=== PATIENT | female | born 1930 | race Caucasian/White ===

== ENCOUNTER 2018-03-05 11:55 | Inpatient (IN) | payer MEDICARE, OTHER ==
[~2018-03-05] VITALS: Ht 157.5 cm; Wt 55.0 kg
[2018-03-05 12:04] VITALS: BP 170/70; PULSE 103; RESP 21; TEMP 99.2; O2SAT 97
[2018-03-05 12:12] VITALS: O2SAT 97
--- NOTE | 2018-03-05 12:14 | PD ---
HPI Chief Complaint: Hip injury Time Seen by Provider: 12:02 Travel History International Travel<30 days: No Contact w/Intl Traveler<30days: No Traveled to known affect area: No History of Present Illness HPI The patient is 87-year-old female who presents to the emergency department via nonemergent transport from [facility] re[facility] for left hip injury. The patient is a poor historian and no further information is obtained from the patient. She does respond to name, but is unable to tell me the month or year. She is unable to answer any questions in regards to review of systems. Review the patient's paperwork does reveal she had an outpatient x- ray performed which revealed an intertrochanteric fracture of the left hip. No further information is obtainable from the patient. PFSH Past Medical History Narrative Medical Hyperlipidemia, anemia, osteoporosis, anxiety disorder, vitamin D deficiency, hypothyroidism, gastroesophageal reflux disease, atherosclerotic heart disease Past Surgical History Surgical History: Unable to Obtain Social History Tobacco Use: No Allergies-Medications (Allergen,Severity, Reaction): Coded Allergies: No Known Allergies (Unverified , 03/05/18) Reported Meds & Prescriptions Reported Meds & Active Scripts Active Reported Tylenol (Acetaminophen) 325 Mg Tab 650 Mg PO Q6H PRN Zetia (Ezetimibe) 10 Mg Tab 10 Mg PO DAILY Atorvastatin (Atorvastatin Calcium) 10 Mg Tab 10 Mg PO HS Donepezil 10 Mg Tab 10 Mg PO HS Flomax (Tamsulosin HCl) 0.4 Mg Cap 0.4 Mg PO DAILY Fosamax (Alendronate Sodium) 70 Mg Tab 70 Mg PO Q7D Ranitidine (Ranitidine HCl) 150 Mg Tab 150 Mg PO DAILY Vitamin B-12 (Cyanocobalamin) 500 Mcg Tab 500 Mcg PO DAILY Amlodipine (Amlodipine Besylate) 10 Mg Tab 10 Mg PO DAILY Keppra (Levetiracetam) 250 Mg Tab 250 Mg PO BID Levothyroxine (Levothyroxine Sodium) 112 Mcg Tab 112 Mcg PO DAILY Aspirin 81 Mg Chew 81 Mg CHEW DAILY Review of Systems ROS Limitations: Clinical Condition, Poor Historian Except as stated in HPI: all other systems reviewed are Neg Musculoskeletal: Positive: Pain (Left hip fracture according to x-ray results from the shelter) Physical Exam Narrative GENERAL: Awake, eyes open, mostly nonverbal 87-year-old female who appears her stated age and is in no acute respiratory distress. SKIN: Focused skin assessment warm/dry. HEAD: Atraumatic. Normocephalic. EYES: No injection or drainage. ENT: No nasal bleeding or discharge. No visible tooth NECK: Trachea midline. No JVD. CARDIOVASCULAR: Regular rate and rhythm. No murmur appreciated. RESPIRATORY: No accessory muscle use. Clear to auscultation. Breath sounds equal bilaterally. GASTROINTESTINAL: Abdomen soft, non-tender, nondistended. No rebound tenderness MUSCULOSKELETAL: The left leg is shortened and slightly rotated. Positive distal pulses. NEUROLOGICAL: Awake, eyes open, does not follow commands. Does respond to name. Moves her upper extremities and right lower extremity, little movement of the left lower extremity. PSYCHIATRIC: Unable to obtain. Data Data Last Documented VS Vital Signs Date Time Temp Pulse Resp B/P (MAP) Pulse Ox O2 Delivery O2 Flow Rate FiO2 03/05/18 13:32 98 12 151/67 (95) 95 Room Air 03/05/18 12:04 99.2 Orders Orders Electrocardiogram (03/05/18 12:07) Complete Blood Count With Diff (03/05/18 12:07) Comprehensive Metabolic Panel (03/05/18 12:07) Prothrombin Time / Inr (Pt) (03/05/18 12:07) Act Partial Throm Time (Ptt) (03/05/18 12:07) Urinalysis - C+S If Indicated (03/05/18 12:07) Type And Screen (03/05/18 12:07) Chest, Single Ap (03/05/18 12:07) Hip, Uni(Ap&Lat) W Ap Pelvis (03/05/18 12:07) Iv Access Insert/Monitor (03/05/18 12:07) Urinary Catheter Insert/Apply (03/05/18 12:07) Oximetry (03/05/18 12:07) Ice/Cold Pack (03/05/18 12:07) Ecg Monitoring (03/05/18 12:07) Morphine Inj (Morphine Inj) (03/05/18 12:15) Sodium Chloride 0.9% Flush (Ns Flush) (03/05/18 12:15) Ondansetron Odt (Zofran Odt) (03/05/18 12:15) Urine Culture (03/05/18 12:20) Ceftriaxone Inj (Rocephin Inj) (03/05/18 13:15) Levofloxacin 500 Mg Premix Inj (Levaquin (03/05/18 13:30) Consult Orthopedic (03/05/18 ) (Hub Use Only)Inp Phy Cons/Ref (03/05/18 ) Acetaminophen (Tylenol) (03/05/18 13:45) Amlodipine (Norvasc) (03/06/18 09:00) Atorvastatin (Lipitor) (03/05/18 21:00) Cyanocobalamin (Vitamin B12) (03/06/18 09:00) Donepezil (Aricept) (03/05/18 21:00) Levetiracetam (Keppra) (03/05/18 21:00) Levothyroxine (Synthroid) (03/06/18 06:00) Tamsulosin (Flomax) (03/06/18 09:00) (Nf) Ranitidine (03/06/18 09:00) Admit To Inpatient (03/05/18 ) Vital Signs (Adult) Q4H (03/05/18 13:39) Activity Bed Rest (03/05/18 13:39) Npo After Midnight W/ Po Meds (03/06/18 Breakfast) Diet Heart Healthy (03/05/18 Lunch) Sodium Chloride 0.9% Flush (Ns Flush) (03/05/18 13:45) Sodium Chloride 0.9% Flush (Ns Flush) (03/05/18 21:00) Acetamin-Hydrocod 325-5 Mg ([place] 5-325 (03/05/18 13:45) Docusate Sodium (Colace) (03/05/18 21:00) Diphenhydramine Inj (Benadryl Inj) (03/05/18 13:45) Diphenhydramine (Benadryl) (03/05/18 13:45) Naloxone Inj (Narcan Inj) (03/05/18 13:45) Complete Blood Count With Diff (03/06/18 06:00) Basic Metabolic Panel (Bmp) (03/06/18 06:00) Inpatient Certification (03/05/18 ) Ceftriaxone Inj (Rocephin Inj) (03/06/18 10:00) Admit Order (Ed Use Only) (03/05/18 13:54) Labs Laboratory Tests Test 03/05/18 12:20 White Blood Count 7.2 TH/MM3 Red Blood Count 4.01 MIL/MM3 Hemoglobin 10.2 GM/DL Hematocrit 30.9 % Mean Corpuscular Volume 77.3 FL Mean Corpuscular Hemoglobin 25.4 PG Mean Corpuscular Hemoglobin Concent 32.8 % Red Cell Distribution Width 14.3 % Platelet Count 167 TH/MM3 Mean Platelet Volume 9.4 FL Neutrophils (%) (Auto) 75.2 % Lymphocytes (%) (Auto) 13.8 % Monocytes (%) (Auto) 10.1 % Eosinophils (%) (Auto) 0.5 % Basophils (%) (Auto) 0.4 % Neutrophils # (Auto) 5.4 TH/MM3 Lymphocytes # (Auto) 1.0 TH/MM3 Monocytes # (Auto) 0.7 TH/MM3 Eosinophils # (Auto) 0.0 TH/MM3 Basophils # (Auto) 0.0 TH/MM3 CBC Comment DIFF FINAL Differential Comment Prothrombin Time 10.6 SEC Prothromb Time International Ratio 1.0 RATIO Activated Partial Thromboplast Time 26.4 SEC Urine Color YELLOW Urine Turbidity CLOUDY Urine pH 6.0 Urine Specific [place] 1.016 Urine Protein NEG mg/dL Urine Glucose (UA) NEG mg/dL Urine Ketones NEG mg/dL Urine Occult Blood SMALL Urine Nitrite POS Urine Bilirubin NEG Urine Urobilinogen 2.0 mg/dL Urine Leukocyte Esterase LARGE Urine RBC 3 /hpf Urine WBC /hpf Urine WBC Clumps MOD Urine Squamous Epithelial Cells 1 /hpf Urine Bacteria MANY /hpf Urine Hyaline Casts 1 /lpf Urine Mucus FEW /lpf Microscopic Urinalysis Comment CULTURE INDICATED Blood Urea Nitrogen 17 MG/DL Creatinine 0.84 MG/DL Random Glucose 138 MG/DL Total Protein 6.5 GM/DL Albumin 3.0 GM/DL Calcium Level 8.7 MG/DL Alkaline Phosphatase 87 U/L Aspartate Amino Transf (AST/SGOT) 16 U/L Alanine Aminotransferase (ALT/SGPT) 17 U/L Total Bilirubin 0.5 MG/DL Sodium Level 141 MEQ/L Potassium Level 3.5 MEQ/L Chloride Level 107 MEQ/L Carbon Dioxide Level 23.6 MEQ/L Anion Gap 10 MEQ/L Estimat Glomerular Filtration Rate 64 ML/MIN MDM Medical Decision Making Medical Screen Exam Complete: Yes Emergency Medical Condition: Yes Medical Record Reviewed: Yes Interpretation(s) EKG reveals sinus tachycardia with a heart rate of 102. RSR prime in V1, incomplete right bundle branch block. Last Impressions Hip and Pelvis X-Ray 03/05/18 1207 Signed Impressions: CONCLUSION: There is a comminuted mildly displaced fracture of the left femur through the i ntertrochanteric region. Chest X-Ray 03/05/18 1207 Signed Impressions: CONCLUSION: Mild atelectasis versus consolidation in the left lower lobe. Otherwise, no acu te finding is identified. Laboratory Tests Test 03/05/18 12:20 White Blood Count 7.2 TH/MM3 Red Blood Count 4.01 MIL/MM3 Hemoglobin 10.2 GM/DL Hematocrit 30.9 % Mean Corpuscular Volume 77.3 FL Mean Corpuscular Hemoglobin 25.4 PG Mean Corpuscular Hemoglobin Concent 32.8 % Red Cell Distribution Width 14.3 % Platelet Count 167 TH/MM3 Mean Platelet Volume 9.4 FL Neutrophils (%) (Auto) 75.2 % Lymphocytes (%) (Auto) 13.8 % Monocytes (%) (Auto) 10.1 % Eosinophils (%) (Auto) 0.5 % Basophils (%) (Auto) 0.4 % Neutrophils # (Auto) 5.4 TH/MM3 Lymphocytes # (Auto) 1.0 TH/MM3 Monocytes # (Auto) 0.7 TH/MM3 Eosinophils # (Auto) 0.0 TH/MM3 Basophils # (Auto) 0.0 TH/MM3 CBC Comment DIFF FINAL Differential Comment Prothrombin Time 10.6 SEC Prothromb Time International Ratio 1.0 RATIO Activated Partial Thromboplast Time 26.4 SEC Urine Color YELLOW Urine Turbidity CLOUDY Urine pH 6.0 Urine Specific [place] 1.016 Urine Protein NEG mg/dL Urine Glucose (UA) NEG mg/dL Urine Ketones NEG mg/dL Urine Occult Blood SMALL Urine Nitrite POS Urine Bilirubin NEG Urine Urobilinogen 2.0 mg/dL Urine Leukocyte Esterase LARGE Urine RBC 3 /hpf Urine WBC /hpf Urine WBC Clumps MOD Urine Squamous Epithelial Cells 1 /hpf Urine Bacteria MANY /hpf Urine Hyaline Casts 1 /lpf Urine Mucus FEW /lpf Microscopic Urinalysis Comment CULTURE INDICATED Blood Urea Nitrogen 17 MG/DL Creatinine 0.84 MG/DL Random Glucose 138 MG/DL Total Protein 6.5 GM/DL Albumin 3.0 GM/DL Calcium Level 8.7 MG/DL Alkaline Phosphatase 87 U/L Aspartate Amino Transf (AST/SGOT) 16 U/L Alanine Aminotransferase (ALT/SGPT) 17 U/L Total Bilirubin 0.5 MG/DL Sodium Level 141 MEQ/L Potassium Level 3.5 MEQ/L Chloride Level 107 MEQ/L Carbon Dioxide Level 23.6 MEQ/L Anion Gap 10 MEQ/L Estimat Glomerular Filtration Rate 64 ML/MIN Differential Diagnosis Differential diagnosis includes femoral neck fracture, intertrochanteric hip fracture, femur fracture, pelvic fracture, mechanical fall. Narrative Course IV was established, labs are drawn and sent, the patient was placed on cardiac telemetry monitoring and continuous pulse oximetry monitoring. Chest x-ray, pelvic x-ray, and x-ray of the left hip were obtained. 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 English catheter was placed. The patient was kept n.p.o. UA reveals innumerable WBCs with leukocyte esterase consistent with UTI. The patient was administered Rocephin 1 g intravenously. X-ray reveals a left intertrochanteric hip fracture that is displaced. The patient will be admitted to the medical service with a consultation orthopedics. I discussed the patient with the orthopedic surgeon, Dr. Medrano, at 1:27 PM. He requests 1 g of Rocephin and Levaquin. He states the patient can eat tonight, should be n.p.o. after midnight. The on-call medical service was paged for admission. Physician Communication Physician Communication The on-call medical service was paged for admission. I discussed the patient with Dr. Pinzon who agrees with admission. Diagnosis Primary Impression: Intertrochanteric fracture of left hip Qualified Codes: S72.142A - Displaced intertrochanteric fracture of left femur , initial encounter for closed fracture Additional Impression: UTI (urinary tract infection) Qualified Codes: N30.00 - Acute cystitis without hematuria Admitting Information Admitting Physician Requests: Admit Condition: Stable Ki Guallpa MD Mar 05, 2018 12:14
[2018-03-05] MEDS ORDERED: ONDANSETRON ODT 4 MG TAB PO ONE (12:15)
[2018-03-05] MEDS ORDERED: MORPHINE SULFATE 4 MG/ML INJ IV PUSH ONE (12:15)
[2018-03-05] MEDS ORDERED: SODIUM CHLORIDE 0.9% FLUSH 10 ML FLUSH IVF PRN (12:15)
[2018-03-05 12:36] LABS: AUTOMATED NEUTROPHIL # 5.4 TH/MM3 (1.8-7.7); BASOPHIL % 0.4 % (0.0-2.0); EOSINOPHIL % 0.5 % (0.0-4.0); HEMATOCRIT 30.9 % (35.0-46.0); HEMOGLOBIN 10.2 GM/DL (11.6-15.3); LYMPH % 13.8 % (9.0-44.0); MEAN CELL VOLUME 77.3 FL (80.0-100.0); MEAN CORPUSCULAR HEMOGLOBIN 25.4 PG (27.0-34.0); MEAN CORPUSCULAR HGB CONC 32.8 % (32.0-36.0); MEAN PLATELET VOLUME 9.4 FL (7.0-11.0); MONO % 10.1 % (0.0-8.0); MONOCYTE # 0.7 TH/MM3 (0-0.9); NEUT % 75.2 % (16.0-70.0); PLATELET COUNT 167 TH/MM3 (150-450); RED BLOOD COUNT 4.01 MIL/MM3 (4.00-5.30); RED CELL DISTRIBUTION WIDTH 14.3 % (11.6-17.2); WHITE BLOOD COUNT 7.2 TH/MM3 (4.0-11.0)
[2018-03-05 12:41] LABS: PROTHROMBIN TIME - PATIENT 10.6 SEC (9.8-11.6)
[2018-03-05] MEDS ORDERED: ASPI-516 CHEW (12:44)
[2018-03-05] MEDS ORDERED: FOSA70TA PO (12:44)
[2018-03-05] MEDS ORDERED: AMLO10TA2 PO (12:44)
[2018-03-05] MEDS ORDERED: LEVO112T2 PO (12:44)
[2018-03-05] MEDS ORDERED: EZET10 PO (12:44)
[2018-03-05] MEDS ORDERED: TAMS5CAP PO (12:44)
[2018-03-05] MEDS ORDERED: ATOR10TA15 PO (12:44)
[2018-03-05] MEDS ORDERED: VITA500T4 PO (12:44)
[2018-03-05] MEDS ORDERED: LEVE250 PO (12:44)
[2018-03-05] MEDS ORDERED: TYLE325T PO (12:44)
[2018-03-05] MEDS ORDERED: DONE10TA7 PO (12:44)
[2018-03-05] MEDS ORDERED: RANI150T PO (12:44)
[2018-03-05 12:54] LABS: BACTERIA, URINE MANY /hpf; BILIRUBIN, URINE NEG (NEG); BLOOD, URINE SMALL (NEG); GLUCOSE,URINE NEG (NEG); HYALINE CAST, URINE 1 /lpf (RARE); KETONE, URINE NEG (NEG); MUCUS URINE FEW /lpf (OCC); NITRITE,URINE POS (NEG); SQUAMOUS EPITHELIAL CELL URINE 1 /hpf (0-5); URINE COLOR YELLOW (YELLW/STRAW); URINE LEUKOCYTE ESTERASE LARGE (NEG); WHITE BLOOD CELL CLUMPS MOD
--- NOTE | 2018-03-05 13:00 | RADRPT ---
EXAM DATE: 03/05/2018 12:54 PM EDT AGE/SEX: 87 years / Female INDICATIONS: Pain from fall. CLINICAL DATA: This is the patient's initial encounter. Patient reports that signs and symptoms have been present for 1 day and indicates a pain score of Nonresponsive. MEDICAL/SURGICAL HISTORY: Non-responsive. Non-responsive. COMPARISON: No prior exams available for comparison. FINDINGS: AP view of the pelvis with 2 views of the left hip joint demonstrate a comminuted mildly displaced fr acture through the intertrochanteric region of the left femur. The lesser trochanter is slightly disp laced medially. There is also abnormal angulation at the fracture site. Both hip joints demonstrate j oint space narrowing without significant osteophytes. The bones are under mineralized. No soft tissue abnormality is identified. There is a large amount of stool overlying the rectum. CONCLUSION: There is a comminuted mildly displaced fracture of the left femur through the intertrochanteric regio n. Electronically signed by: Alek Park MD 03/05/2018 12:59 PM EDT
--- NOTE | 2018-03-05 13:01 | RADRPT ---
EXAM DATE: 03/05/2018 12:55 PM EDT AGE/SEX: 87 years / Female INDICATIONS: Pain from fall. CLINICAL DATA: This is the patient's initial encounter. Patient reports that signs and symptoms have been present for 1 day and indicates a pain score of Nonresponsive. MEDICAL/SURGICAL HISTORY: Non-responsive. Non-responsive. COMPARISON: No prior exams available for comparison. FINDINGS: Supine AP view of the chest demonstrates a normal-sized cardiac silhouette with calcification of a mi ldly tortuous aorta. No pleural effusion or pneumothorax is identified. There is a linear opacity in the left lower lobe. There is mild biapical scar. Bones and soft tissues demonstrate no acute abnorma lity. CONCLUSION: Mild atelectasis versus consolidation in the left lower lobe. Otherwise, no acute finding is identifi ed. Electronically signed by: Alek Park MD 03/05/2018 1:00 PM EDT
[2018-03-05 13:11] LABS: AST (GOT) 16 U/L (15-37); BICARBONATE 23.6 MEQ/L (21.0-32.0); BLOOD UREA NITROGEN 17 MG/DL (7-18); CALCIUM 8.7 MG/DL (8.5-10.1); CHLORIDE 107 MEQ/L (98-107); CREATININE 0.84 MG/DL (0.50-1.00); GLOMERULAR FILTRATION RATE 64 ML/MIN (>89); GLUCOSE,RANDOM 138 MG/DL (74-106); SODIUM (NA) 141 MEQ/L (136-145)
[2018-03-05 13:12] LABS: ALT (GPT) 17 U/L (10-53)
[2018-03-05 13:15] LABS: ALKALINE PHOSPHATASE 87 U/L (45-117); TOTAL BILIRUBIN ADULT 0.5 MG/DL (0.2-1.0); TOTAL PROTEIN 6.5 GM/DL (6.4-8.2)
[2018-03-05] MEDS ORDERED: cefTRIAXone INJ 1,000 MG in SODIUM CHLORIDE 0.9% INJ 100 ML IV ONE (13:15)
[2018-03-05] MEDS ORDERED: LEVOFLOXACIN 500 MG PREMIX INJ 100 ML IV ONE (13:30)
[2018-03-05 13:32] VITALS: BP 151/67; PULSE 98; RESP 12; O2SAT 95
[2018-03-05] MEDS ORDERED: diphenhydrAMINE HCL 25 MG CAP PO PRN (13:45)
[2018-03-05] MEDS ORDERED: ACETAMINOPHEN/HYDROcodone 325 MG/5 MG TAB PO PRN (13:45)
[2018-03-05] MEDS ORDERED: ACETAMINOPHEN 325 MG TAB PO PRN (13:45)
[2018-03-05] MEDS ORDERED: SODIUM CHLORIDE 0.9% FLUSH 10 ML FLUSH IV FLUSH PRN (13:45)
[2018-03-05] MEDS ORDERED: diphenhydrAMINE HCL 50 MG/ML VIAL IV PUSH PRN (13:45)
[2018-03-05] MEDS ORDERED: NALOXONE HCL 0.4 MG/ML AMP IV PUSH PRN (13:45)
--- NOTE | 2018-03-05 13:51 | HHI.HP ---
[facility] Service [facility] Primary Care Physician Simone Oneill MD Admission Diagnosis Diagnoses: (1) Dementia (2) Intertrochanteric fracture of left hip (3) UTI (urinary tract infection) (4) Seizure disorder (5) Hyperlipidemia Chief Complaint: Sent from SNF with hip fracture. Travel History International Travel<30 Days: No Contact w/Intl Traveler <30 Da: No Traveled to Known Affected Are: No History of Present Illness 87-year-old female with a medical history significant for dementia, seizure disorder, hyperlipidemia, osteoporosis sent from [facility] and rehab for left hip fracture. The patient has dementia and is unable to provide any history. History obtained from communications with ER physician and review of the chart. Apparently the patient was brought in with paperwork showing an outpatient x-ray with report of left intratrochanteric fracture. It is unclear how the patient sustained injury. There has been no report of change in mental status or syncopal episodes. Workup in the emergency room confirmed a left hip fracture and urinalysis concerning for UTI. Orthopedic surgery has been consulted. Review of Systems ROS Limitations: Clinical Condition, Poor Historian Unable to obtain accurate review of systems due to significant dementia. Past Family Social History Past Medical History Dementia Hyperlipidemia Seizure disorder Hypothyroidism GERD Atherosclerotic heart disease Past Surgical History Unable to obtain Reported Medications Reported Meds & Active Scripts Active Reported Tylenol (Acetaminophen) 325 Mg Tab 650 Mg PO Q6H PRN Zetia (Ezetimibe) 10 Mg Tab 10 Mg PO DAILY Atorvastatin (Atorvastatin Calcium) 10 Mg Tab 10 Mg PO HS Donepezil 10 Mg Tab 10 Mg PO HS Flomax (Tamsulosin HCl) 0.4 Mg Cap 0.4 Mg PO DAILY Fosamax (Alendronate Sodium) 70 Mg Tab 70 Mg PO Q7D Ranitidine (Ranitidine HCl) 150 Mg Tab 150 Mg PO DAILY Vitamin B-12 (Cyanocobalamin) 500 Mcg Tab 500 Mcg PO DAILY Amlodipine (Amlodipine Besylate) 10 Mg Tab 10 Mg PO DAILY Keppra (Levetiracetam) 250 Mg Tab 250 Mg PO BID Levothyroxine (Levothyroxine Sodium) 112 Mcg Tab 112 Mcg PO DAILY Aspirin 81 Mg Chew 81 Mg CHEW DAILY Allergies: Coded Allergies: No Known Allergies (Unverified , 03/05/18) Family History Unable to obtain Social History Patient resides at [facility] re[facility]. Physical Exam Vital Signs Vital Signs Date Time Temp Pulse Resp B/P (MAP) Pulse Ox O2 Delivery O2 Flow Rate FiO2 03/05/18 13:32 98 12 151/67 (95) 95 Room Air 03/05/18 12:15 101 22 96 Room Air 03/05/18 12:12 97 Room Air 03/05/18 12:04 99.2 103 21 170/70 (103) 97 Physical Exam GENERAL: Elderly female in no acute distress. Open eyes and nod but does not follow commands. HEAD: Atraumatic. Normocephalic. No temporal or scalp tenderness. EYES: Pupils equal round and reactive. ENT: Nose without bleeding, purulent drainage or septal hematoma. NECK: Trachea midline. No JVD or lymphadenopathy. Supple, nontender, no meningeal signs. CARDIOVASCULAR: Regular rate and rhythm without murmurs, gallops, or rubs. RESPIRATORY: Clear to auscultation. Breath sounds equal bilaterally. No wheezes , rales, or rhonchi. GASTROINTESTINAL: Abdomen soft, non-tender, nondistended. MUSCULOSKELETAL: Left lower extremity externally rotated and shortened. No lower extremity edema or cyanosis. NEUROLOGICAL: Demented. Does not follow commands. Laboratory Laboratory Tests Test 03/05/18 12:20 White Blood Count 7.2 Red Blood Count 4.01 Hemoglobin 10.2 Hematocrit 30.9 Mean Corpuscular Volume 77.3 Mean Corpuscular Hemoglobin 25.4 Mean Corpuscular Hemoglobin Concent 32.8 Red Cell Distribution Width 14.3 Platelet Count 167 Mean Platelet Volume 9.4 Neutrophils (%) (Auto) 75.2 Lymphocytes (%) (Auto) 13.8 Monocytes (%) (Auto) 10.1 Eosinophils (%) (Auto) 0.5 Basophils (%) (Auto) 0.4 Neutrophils # (Auto) 5.4 Lymphocytes # (Auto) 1.0 Monocytes # (Auto) 0.7 Eosinophils # (Auto) 0.0 Basophils # (Auto) 0.0 CBC Comment DIFF FINAL Differential Comment Prothrombin Time 10.6 Prothromb Time International Ratio 1.0 Activated Partial Thromboplast Time 26.4 Urine Color YELLOW Urine Turbidity CLOUDY Urine pH 6.0 Urine Specific [place] 1.016 Urine Protein NEG Urine Glucose (UA) NEG Urine Ketones NEG Urine Occult Blood SMALL Urine Nitrite POS Urine Bilirubin NEG Urine Urobilinogen 2.0 Urine Leukocyte Esterase LARGE Urine RBC 3 Urine WBC Urine WBC Clumps MOD Urine Squamous Epithelial Cells 1 Urine Bacteria MANY Urine Hyaline Casts 1 Urine Mucus FEW Microscopic Urinalysis Comment CULTURE INDICATED Blood Urea Nitrogen 17 Creatinine 0.84 Random Glucose 138 Total Protein 6.5 Albumin 3.0 Calcium Level 8.7 Alkaline Phosphatase 87 Aspartate Amino Transf (AST/SGOT) 16 Alanine Aminotransferase (ALT/SGPT) 17 Total Bilirubin 0.5 Sodium Level 141 Potassium Level 3.5 Chloride Level 107 Carbon Dioxide Level 23.6 Anion Gap 10 Estimat Glomerular Filtration Rate 64 Date/Time Source Procedure Growth Status 03/05/18 12:20 Urine Clean Catch Urine Culture Pending Received Result Diagram: 03/05/18 1220 03/05/18 1220 Imaging Last Impressions Hip and Pelvis X-Ray 03/05/18 1207 Signed Impressions: CONCLUSION: There is a comminuted mildly displaced fracture of the left femur through the i ntertrochanteric region. Chest X-Ray 03/05/18 1207 Signed Impressions: CONCLUSION: Mild atelectasis versus consolidation in the left lower lobe. Otherwise, no acu te finding is identified. Caprini VTE Risk Assessment Caprini VTE Risk Assessment: Mod/High Risk (score >= 2) Caprini Risk Assessment Model Point Value = 1 Point Value = 2 Point Value = 3 Point Value = 5 Age 41-60 Minor surgery BMI > 25 kg/m2 Swollen legs Varicose veins or History of unexplained or recurrent spontaneous Oral contraceptives or hormone replacement Sepsis (< 1 month) Serious lung disease, including pneumonia (< 1 month) Abnormal pulmonary function Acute myocardial infarction Congestive heart failure (< 1 month) History of inflammatory bowel disease Medical patient at bed rest Age 61-74 Arthroscopic surgery Major open surgery (> 45 min) Laparoscopic surgery (> 45 min) Malignancy Confined to bed (> 72 hours) Immobilizing plaster cast Central venous access Age >= 75 History of VTE Family history of VTE Factor V Leiden Prothrombin [id number] Lupus anticoagulant Anticardiolipin antibodies Elevated serum homocysteine Heparin-induced thrombocytopenia Other congenital or acquired thrombophilia Stroke (< 1 month) Elective arthroplasty Hip, pelvis, or leg fracture Acute spinal cord injury (< 1 month) Prophylaxis Regimen Total Risk Factor Score Risk Level Prophylaxis Regimen 0-1 Low Early ambulation 2 Moderate Order ONE of the following: *Sequential Compression Device (SCD) *Heparin 5000 units SQ BID 3-4 Higher Order ONE of the following medications: *Heparin 5000 units SQ TID *Enoxaparin/Lovenox 40 mg SQ daily (WT < 150 kg, CrCl > 30 mL/min) *Enoxaparin/Lovenox 30 mg SQ daily (WT < 150 kg, CrCl > 10-29 mL/min) *Enoxaparin/Lovenox 30 mg SQ BID (WT < 150 kg, CrCl > 30 mL/min) AND/OR *Sequential Compression Device (SCD) 5 or more Highest Order ONE of the following medications: *Heparin 5000 units SQ TID (Preferred with Epidurals) *Enoxaparin/Lovenox 40 mg SQ daily (WT < 150 kg, CrCl > 30 mL/min) *Enoxaparin/Lovenox 30 mg SQ daily (WT < 150 kg, CrCl > 10-29 mL/min) *Enoxaparin/Lovenox 30 mg SQ BID (WT < 150 kg, CrCl > 30 mL/min) AND *Sequential Compression Device (SCD) Assessment and Plan Problem List: (1) Intertrochanteric fracture of left hip ICD Code: S72.142A - Displaced intertrochanteric fracture of left femur, initial encounter for closed fracture Status: Acute Plan: Orthopedic surgery consulted. Plan for intervention tomorrow morning. N.p.o. after midnight Pain control (2) UTI (urinary tract infection) ICD Code: N39.0 - Urinary tract infection, site not specified Status: Acute Plan: Continue Rocephin daily. Follow urine cultures and blood cultures. (3) Dementia ICD Code: F03.90 - Unspecified dementia without behavioral disturbance Plan: Continue Aricept. No acute changes in her mental status. (4) Hyperlipidemia ICD Code: E78.5 - Hyperlipidemia, unspecified Plan: Continue statin (5) Seizure disorder ICD Code: G40.909 - Epilepsy, unspecified, not intractable, without status epilepticus Plan: Continue Keppra. Physician Certification 2 Midnight Certification Type: Admission for Inpatient Services Order for Inpatient Services The services are ordered in accordance with Medicare regulations or non- Medicare payer requirements, as applicable. In the case of services not specified as inpatient-only, they are appropriately provided as inpatient services in accordance with the 2-midnight benchmark. Estimated LOS (days): 3 days is the estimated time the patient will need to remain in the hospital, assuming treatment plan goals are met and no additional complications. Post-Hospital Plan: SNF Problem Qualifiers (1) Intertrochanteric fracture of left hip: Qualified Codes: S72.142A - Displaced intertrochanteric fracture of left femur , initial encounter for closed fracture (2) UTI (urinary tract infection): Qualified Codes: N30.00 - Acute cystitis without hematuria Tad Pinzon MD Mar 05, 2018 13:51
[2018-03-05 14:13] VITALS: BP 168/71
[2018-03-05] MEDS ORDERED: PILL SPLITTER OTHER PRN (14:15)
[2018-03-05 16:15] VITALS: BP 149/63; PULSE 97; RESP 19; TEMP 97.4; O2SAT 95
[2018-03-05] MEDS ORDERED: POVIDONE IODINE 5% (ANTISEPSIS KIT) 4 APPLICATIONS EACH NARE PRN (16:15)
[2018-03-05] MEDS ORDERED: CHLORHEXIDINE GLUCONATE 2 % 1 PACK (2 CLOTHS) TOPICAL PRN (16:15)
[2018-03-05] MEDS ORDERED: SODIUM CHLORID 0.9% 500 ML IV PRN (16:15)
[2018-03-05] MEDS ORDERED: LACTATED RINGER'S 1000 ML IV PRN (16:15)
[2018-03-05 20:00] VITALS: BP 146/67; PULSE 104; RESP 19; TEMP 98.4; O2SAT 94
[2018-03-05] MEDS: ATORVASTATIN 10 MG TAB PO SCH (21:39)
[2018-03-05] MEDS: levETIRAcetam 250 MG TAB PO SCH (21:39)
[2018-03-05] MEDS: DONEPEZIL HCL 5 MG TAB PO SCH (21:39)
[2018-03-05] MEDS: SODIUM CHLORIDE 0.9% FLUSH 10 ML FLUSH IV FLUSH SCH (21:39)
[2018-03-05] MEDS: DOCUSATE SODIUM 100 MG CAP PO SCH (21:39)
[2018-03-06] VITALS (7 sets, daily range): BP systolic 129–181; BP diastolic 67–79; PULSE 78–103; RESP 16–18; TEMP 97.7–98.3; O2SAT 92–98
[2018-03-06] MEDS: LEVOTHYROXINE SODIUM 112 MCG TAB PO SCH (05:24)
[2018-03-06] MEDS ORDERED: MORPHINE SULFATE 4 MG/ML INJ IV PUSH ONE (06:00)
[2018-03-06] MEDS ORDERED: VANCOMYCIN HCL 1000 MG VIAL ONE (07:35)
[2018-03-06] MEDS ORDERED: GENTAMICIN SULFATE 80 MG/2 ML VIAL ONE (07:36)
[2018-03-06] MEDS ORDERED: SODIUM CHLOR 0.9% 250 ML INJ 250 ML ONE (07:36)
[2018-03-06] MEDS ORDERED: ceFAZolin INJ 1,000 MG VIAL ONE (07:36)
[2018-03-06 07:40] LABS: AUTOMATED NEUTROPHIL # 5.6 TH/MM3 (1.8-7.7); BASOPHIL % 0.4 % (0.0-2.0); EOSINOPHIL % 0.6 % (0.0-4.0); HEMATOCRIT 29.5 % (35.0-46.0); HEMOGLOBIN 9.8 GM/DL (11.6-15.3); LYMPH % 12.7 % (9.0-44.0); LYMPHOCYTE # 0.9 TH/MM3 (1.0-4.8); MEAN CELL VOLUME 77.5 FL (80.0-100.0); MEAN CORPUSCULAR HEMOGLOBIN 25.7 PG (27.0-34.0); MEAN CORPUSCULAR HGB CONC 33.2 % (32.0-36.0); MEAN PLATELET VOLUME 9.6 FL (7.0-11.0); MONO % 11.5 % (0.0-8.0); MONOCYTE # 0.9 TH/MM3 (0-0.9); NEUT % 74.8 % (16.0-70.0); PLATELET COUNT 149 TH/MM3 (150-450); RED BLOOD COUNT 3.81 MIL/MM3 (4.00-5.30); RED CELL DISTRIBUTION WIDTH 14.5 % (11.6-17.2); WHITE BLOOD COUNT 7.5 TH/MM3 (4.0-11.0)
[2018-03-06 07:54] LABS: BICARBONATE 25.9 MEQ/L (21.0-32.0); CALCIUM 8.5 MG/DL (8.5-10.1); CREATININE 0.9 MG/DL (0.50-1.00)
[2018-03-06] MEDS: SODIUM CHLORIDE 0.9% FLUSH 10 ML FLUSH IV FLUSH SCH ×2 (09:00→22:30)
[2018-03-06] MEDS: CYANOCOBALAMIN 1,000 MCG TAB PO SCH (09:00)
[2018-03-06] MEDS: FAMOTIDINE 20 MG TAB PO SCH ×2 (09:00→21:00)
[2018-03-06] MEDS: TAMSULOSIN HCL 0.4 MG CAP PO SCH (09:00)
[2018-03-06] MEDS: DOCUSATE SODIUM 100 MG CAP PO SCH (09:00)
[2018-03-06] MEDS: levETIRAcetam 250 MG TAB PO SCH ×2 (09:00→21:00)
[2018-03-06] MEDS ORDERED: levETIRAcetam INJ 250 MG in SODIUM CHLORIDE 0.9% INJ 100 ML IV SCH (10:00)
--- NOTE | 2018-03-06 10:19 | HHI.PR ---
Subjective Remarks Pt about to go to OR. She is very demented and only says "yeah" but I'm not sure if she understands what I'm asking. She does look comfortable. She is awake , reaches out and holds my hand softly. Objective Vitals Vital Signs Date Time Temp Pulse Resp B/P (MAP) Pulse Ox O2 Delivery O2 Flow Rate FiO2 03/06/18 04:00 97.7 98 18 129/79 (96) 95 03/06/18 00:00 98.3 103 18 152/69 (96) 94 03/05/18 20:00 98.4 104 19 146/67 (93) 94 03/05/18 16:15 97.4 97 19 149/63 (91) 95 03/05/18 14:13 93 17 168/71 (103) 93 21 03/05/18 13:32 98 12 151/67 (95) 95 Room Air 03/05/18 12:15 101 22 96 Room Air 03/05/18 12:12 97 Room Air 03/05/18 12:04 99.2 103 21 170/70 (103) 97 I/O 03/05/18 03/05/18 03/05/18 03/06/18 03/06/18 03/06/18 07:00 15:00 23:00 07:00 15:00 23:00 Intake Total 100 ml 240 ml Output Total 600 ml Balance 100 ml -360 ml Intake Oral 240 ml IV Total 100 ml Output Urine Total 600 ml Result Diagram: 03/06/18 0544 03/06/18 0544 Imaging Last Impressions Hip and Pelvis X-Ray 03/05/18 1207 Signed Impressions: CONCLUSION: There is a comminuted mildly displaced fracture of the left femur through the i ntertrochanteric region. Chest X-Ray 03/05/18 1207 Signed Impressions: CONCLUSION: Mild atelectasis versus consolidation in the left lower lobe. Otherwise, no acu te finding is identified. Objective Remarks GENERAL: Elderly female laying in bed, appears comfortable CARDIOVASCULAR: Regular rate and rhythm without murmurs, gallops, or rubs. RESPIRATORY: Clear to auscultation. Breath sounds equal bilaterally. No wheezes , rales, or rhonchi. GASTROINTESTINAL: Abdomen soft, non-tender, nondistended. MUSCULOSKELETAL: No lower extremity edema NEUROLOGICAL: Demented. doesn't really follow commands but does reach out to hold my hand A/P Problem List: (1) Intertrochanteric fracture of left hip ICD Code: S72.142A - Displaced intertrochanteric fracture of left femur, initial encounter for closed fracture Status: Acute (2) UTI (urinary tract infection) ICD Code: N39.0 - Urinary tract infection, site not specified Status: Acute (3) Dementia ICD Code: F03.90 - Unspecified dementia without behavioral disturbance (4) Hyperlipidemia ICD Code: E78.5 - Hyperlipidemia, unspecified (5) Seizure disorder ICD Code: G40.909 - Epilepsy, unspecified, not intractable, without status epilepticus Assessment and Plan (1) Intertrochanteric fracture of left hip Orthopedic surgery consulted. Plan for intervention today. N.p.o. Pain control/rehab/abx/dvt proph per ortho (2) UTI (urinary tract infection) Continue Rocephin daily. Follow urine cultures and blood cultures. (3) Dementia Continue Aricept. No acute changes in her mental status. (4) Hyperlipidemia Continue statin (5) Seizure disorder Continue Keppra. I did switch it to IV as there were concerns w pt being able to take her pills. She is missing her dentures. I have ordered a speech eval as well. Discharge Planning OR today Problem Qualifiers (1) Intertrochanteric fracture of left hip: Qualified Codes: S72.142A - Displaced intertrochanteric fracture of left femur , initial encounter for closed fracture (2) UTI (urinary tract infection): Qualified Codes: N30.00 - Acute cystitis without hematuria Caitlin Lagunas MD Mar 06, 2018 10:19
[2018-03-06] MEDS ORDERED: ROCURONIUM INJ 50 MG/5 ML SYRINGE IV PUSH ONE (12:00)
[2018-03-06] MEDS ORDERED: ePHEDrine/NS 25 MG/5 ML SYRINGE IV ONE (12:00)
[2018-03-06] MEDS ORDERED: DEXAMETHASONE SOD PHOS 4 MG/ML VIAL IV ONE (12:00)
[2018-03-06] MEDS ORDERED: LIDOCAINE HCL 1% PF 5 ML SYRINGE OTHER ONE (12:00)
[2018-03-06] MEDS ORDERED: PHENYLEPH/NS 1000 MCG/10 ML SYR IV ONE (12:00)
[2018-03-06] MEDS ORDERED: ONDANSETRON HCL 4 MG/2 ML VIAL IV PUSH ONE (12:00)
[2018-03-06] MEDS ORDERED: PROPOFOL 200 MG/20 ML AMP IV ONE (12:00)
[2018-03-06] MEDS ORDERED: cefTRIAXone INJ 1,000 MG in SODIUM CHLORIDE 0.9% INJ 100 ML IV SCH (13:00)
[2018-03-06] MEDS ORDERED: NORC5TAB PO (13:38)
[2018-03-06] MEDS ORDERED: ASPI81CH6 CHEW (13:39)
[2018-03-06] MEDS ORDERED: ONDANSETRON ODT 4 MG TAB PO PRN (13:45)
[2018-03-06] MEDS ORDERED: diphenhydrAMINE HCL 25 MG CAP PO PRN (13:45)
[2018-03-06] MEDS ORDERED: ACETAMINOPHEN/HYDROcodone 325 MG/7.5 MG TAB PO PRN (13:45)
[2018-03-06] MEDS ORDERED: Post-op Orders (for Pharmacy) XX ONE (13:45)
[2018-03-06] MEDS ORDERED: NURSING INFORMATION XX PRN (13:45)
[2018-03-06] MEDS ORDERED: PHARMACY INFORMATION XX ONE (13:45)
[2018-03-06] MEDS ORDERED: MORPHINE SULFATE 4 MG/ML INJ IV PUSH PRN (13:45)
[2018-03-06] MEDS ORDERED: MAGNESIUM HYDROXIDE SUSP 30 ML CUP PO PRN (13:45)
[2018-03-06] MEDS ORDERED: *LABETALOL HCL 100 MG/20 ML VIAL PERIprocedural Use ONLY ONE (14:12)
[2018-03-06] MEDS: DEXT 5%-NACL 0.45% 1000 ML INJ 1,000 ML IV SCH ×2 (14:30→16:13)
[2018-03-06] MEDS ORDERED: ACETAMINOPHEN 1000 MG/100 ML 100 ML IV ONE ×2 (14:37→15:30)
--- NOTE | 2018-03-06 15:01 | MP ---
cc: Cirilo Medrano MD DATE OF OPERATION: 03/06/2018 DATE PREOPERATIVE DIAGNOSIS: Left intertrochanteric hip fracture. POSTOPERATIVE DIAGNOSIS: Left intertrochanteric hip fracture. PROCEDURE PERFORMED: Intramedullary nail, left intertrochanteric hip fracture. SURGEON: Cirilo Medrano MD INSPECTOR HEATING AND REFRIGERATION: SHIVANI Gabriel. ANESTHESIA: General. ESTIMATED BLOOD LOSS: 100 mL COMPLICATIONS: None. IMPLANTS USED: Synthes 10 x 180 mm titanium trochanteric femoral nail, 130-degree spiral blade. JUSTIFICATION: This patient is an 87-year-old female who fell and sustained a displaced left comminuted intertrochanteric hip fracture. She was transferred from [facility] to [facility] Emergency Room. X-rays confirmed the above-named findings. She was admitted to the medical service. Orthopedic Surgery was counseled. The patient's son, who is the power of wound care rn, was counseled as to the risks, benefits and alternatives to the above-named proposed surgical procedure. He did wish to proceed with surgery for his mother. PROCEDURE IN DETAIL: Written consent was obtained. The patient was identified by name, taken to the operating room, placed supine on the operating room table. General anesthesia was administered, as well as 2 grams of Ancef and 1 gram of IV vancomycin. The left foot was placed in a padded traction boot. The right leg was placed in a padded well leg avila. All bony prominences and pressure points were well padded. Left hip and left lower extremity prepped and draped using isopropyl alcohol, Hibiclens solution and ChloraPrep solution. After timeout was performed, using the assistance of fluoroscopic guidance, a preliminary reduction was achieved and a longitudinal incision made over the lateral aspect of the left hip with a 10 blade scalpel. The fascial layer was incised. The guidewire was used to gain entrance into the intramedullary canal of the femur. This was begun at the tip of the greater trochanter. This was followed by a cannulated entry reamer. Subsequently, a Synthes 10 mm titanium trochanteric femoral nail was inserted in the intramedullary canal of the femur. The 130-degree locking jig was used to place a guide pin centered in the femoral head on the AP and lateral fluoroscopic projections. This was followed by placement of a 90 mm spiral blade. The top locking screw was then secured to create a fixed angle sliding construct distally. The jig was placed and a single lateral to medial transverse static locking screw. Fluoroscopic imaging again confirmed hardware placement and fracture reduction. The surgical wound was then thoroughly irrigated with sterile saline solution. The fascial layer was closed with #1 Vicryl suture, the subcutaneous layer with 2-0 Vicryl suture. The skin was closed with Dermabond. Sterile dressing was applied. The patient tolerated the procedure well. No intraoperative complications noted. Oscar Glasgow, physician delivery assistant certified, was present for the entire procedure to include patient positioning and procedure itself. The medical necessity of a physician delivery assistant was indicated due to the complexity of the procedure. He assisted with appropriate manipulation of the leg as well as achieving and maintaining fracture reduction along with implantation of the internal fixation device. MD MATTY Perez/OSMANY , 01:35 PM , 03:01 PM
[2018-03-06] MEDS: levETIRAcetam INJ 250 MG in SODIUM CHLORIDE 0.9% INJ 100 ML IV SCH ×2 (15:05→22:23)
--- NOTE | 2018-03-06 15:08 | MB ---
cc: Cirilo Medrano MD DATE: 03/06/2018 REASON FOR CONSULTATION: Left intertrochanteric hip fracture. HISTORY OF PRESENT ILLNESS: The patient is an 87-year-old female who has severe dementia, seizure disorder, hyperlipidemia, osteoporosis, who resides at the [facility]. She appears to have fallen and sustained traumatic injury to the left hip. The patient's severe dementia limits further communication and the history from the patient. X-rays have been performed from [facility], which showed a comminuted displaced left intertrochanteric hip fracture. I have consulted the patient's son, power of business attorney, as well. PAST MEDICAL HISTORY: Dementia, hyperlipidemia, seizure disorder, hypothyroid, gastric reflux, heart disease. PAST SURGICAL HISTORY: Unobtainable. MEDICATIONS: Include: 1. Tylenol. 2. Zetia. 3. Atorvastatin. 4. 5. Flomax. 6. Faslodex. 7. Zantac. 8. B12. 9. Amlodipine. 10. Keppra. 11. Levothyroxine. 12. Aspirin. ALLERGIES: NO KNOWN DRUG ALLERGIES. FAMILY HISTORY: Unobtainable. SOCIAL HISTORY: She lives at [facility]. REVIEW OF SYSTEMS: Unobtainable. PHYSICAL EXAMINATION: VITAL SIGNS: Temperature 99.2, pulse was 98, respirations are 12, blood pressure 150/60. GENERAL: Elderly appearing female with altered mental status. Awake, alert, lying in bed, no acute distress. She does not follow commands or communicate. HEENT: Normocephalic, atraumatic. Pupils round. No scleral icterus. NECK: Supple. LUNGS: Clear. HEART: Regular rate and rhythm. ABDOMEN: Soft and nontender. EXTREMITIES: Left lower extremity shows shortening and external rotation. He has pain with passive motion of the left hip. No asymmetry or calf swelling. She does have mild swelling of the left thigh associated with a fracture. LABORATORY DATA: White blood cell count is 7.2, hematocrit 30, platelet 167. Glucose 138, creatinine 0.84. X-ray of left hip shows a comminuted displaced left intertrochanteric hip fracture. IMPRESSION: An 87-year-old female, status post fall, left intertrochanteric hip fracture, severe dementia, seizure disorder, heart disease. The patient's son is power of business attorney. PLAN: I discussed the diagnosis with the patient's son and treatment options in detail. We spoke about the option of nonoperative treatment versus surgery. Surgery would consist of open reduction and internal fixation with intramedullary nailing of left hip fracture. Risks of surgery were discussed, which include, but not limited to anesthesia, bleeding, infection, damage to nerves and blood vessels, pain, stiffness, failure of hardware, blood clot, pulmonary embolism and even . The patient's son has asked many appropriate questions, which have all been answered. He does wish to proceed with surgery and has provided appropriate consent for us to proceed accordingly. Cirilo Medrano MD JWRosa/AC , 01:33 PM , 03:06 PM
[2018-03-06] MEDS ORDERED: DO NOT ADM ANY ANTICOAGULANT DRUGS PRN (15:15)
--- NOTE | 2018-03-06 15:22 | RADRPT ---
EXAM DATE: 03/06/2018 3:17 PM EDT AGE/SEX: 87 years / Female INDICATIONS: Left troch nail. Open reduction internal fixation left hip CLINICAL DATA: This is the patient's initial encounter. Patient reports that signs and symptoms have been present for 1 day and indicates a pain score of Nonresponsive. MEDICAL/SURGICAL HISTORY: Non-responsive. Non-responsive. COMPARISON: [facility], HIP LEFT (AP&LAT 2/3VWS) W AP PELVIS, 03/05/2018. . FINDINGS: 3 images from the OR have been submitted. There is a short trochanteric femoral fixation intramedulla ry nail with a helical/spiral blade seen through the femoral neck. This successfully reduces the prev iously seen left intertrochanteric femoral neck fracture. CONCLUSION: Good placement of the surgical hardware. Successful ORIF. Electronically signed by: Alek Fowler MD 03/06/2018 3:20 PM EDT
[2018-03-06] MEDS ORDERED: ENALAPRILAT 2.5 MG/2 ML VIAL IV PUSH PRN (15:45)
[2018-03-06] MEDS: CEFAZOLIN INJ 1,000 MG in SODIUM CHLORIDE 0.9% INJ 100 ML IV SCH (22:23)
[2018-03-06] MEDS: DONEPEZIL HCL 5 MG TAB PO SCH (22:32)
[2018-03-06] MEDS: ATORVASTATIN 10 MG TAB PO SCH (22:32)
[2018-03-06] MEDS: DOCUSATE SODIUM 50 MG/SENNA 8.6 MG TAB PO SCH (22:32)
--- NOTE | 2018-03-06 23:16 | EKG ---
Date Performed: 03/05/2018 Time Performed: 12:16:22 PTAGE: 87 years EKG: SINUS TACHYCARDIA POSSIBLE LEFT ATRIAL ENLARGEMENT RIGHT BUNDLE BRANCH BLOCK ABNORMAL ECG NO PREVIOUS TRACING DOCTOR: Tanner Jay Interpretating Date/Time 03/06/2018 23:03:36
[2018-03-07 00:50] VITALS: BP 144/65; PULSE 75; RESP 17; TEMP 97.8; O2SAT 97
[2018-03-07] MEDS: LEVOTHYROXINE SODIUM 112 MCG TAB PO SCH (04:57)
[2018-03-07] MEDS: CEFAZOLIN INJ 1,000 MG in SODIUM CHLORIDE 0.9% INJ 100 ML IV SCH (04:57)
[2018-03-07 05:05] VITALS: BP 178/80; PULSE 89; RESP 17; TEMP 97.2; O2SAT 95
[2018-03-07] MEDS: ACETAMINOPHEN/HYDROcodone 325 MG/7.5 MG TAB PO PRN (05:10)
[2018-03-07 06:57] LABS: HEMATOCRIT 25.6 % (35.0-46.0); HEMOGLOBIN 8.3 GM/DL (11.6-15.3); MEAN CELL VOLUME 76.9 FL (80.0-100.0); MEAN CORPUSCULAR HEMOGLOBIN 24.9 PG (27.0-34.0); MEAN CORPUSCULAR HGB CONC 32.4 % (32.0-36.0); MEAN PLATELET VOLUME 9.7 FL (7.0-11.0); PLATELET COUNT 143 TH/MM3 (150-450); RED BLOOD COUNT 3.33 MIL/MM3 (4.00-5.30); WHITE BLOOD COUNT 11.3 TH/MM3 (4.0-11.0)
[2018-03-07 07:23] LABS: CALCIUM 8.1 MG/DL (8.5-10.1); CREATININE 0.7 MG/DL (0.50-1.00)
[2018-03-07 08:00] VITALS: BP 156/65; PULSE 81; RESP 18; TEMP 97.8; O2SAT 94
[2018-03-07] MEDS: SODIUM CHLORIDE 0.9% FLUSH 10 ML FLUSH IV FLUSH SCH ×2 (09:00→21:00)
[2018-03-07] MEDS: CYANOCOBALAMIN 1,000 MCG TAB PO SCH (09:00)
[2018-03-07] MEDS: levETIRAcetam 250 MG TAB PO SCH ×3 (09:00→21:47)
--- NOTE | 2018-03-07 09:22 | PD.ORT.PN ---
Subjective Post Op Day #: 1 Subjective Remarks hx of dementia Objective Vitals Vital Signs Date Time Temp Pulse Resp B/P (MAP) Pulse Ox O2 Delivery O2 Flow Rate FiO2 03/07/18 05:05 97.2 89 17 178/80 (112) 95 03/07/18 00:50 97.8 75 17 144/65 (91) 97 03/06/18 20:25 97.9 85 17 155/71 (99) 97 03/06/18 19:39 97 Nasal Cannula 3.00 03/06/18 16:08 78 18 153/67 (95) 97 03/06/18 15:03 97.9 80 18 181/75 (110) 98 03/06/18 14:47 98.0 80 16 157/70 (99) 97 Nasal Cannula 3 03/06/18 14:30 99 16 171/75 (107) 97 Nasal Cannula 3 03/06/18 14:15 99 16 182/77 (112) 97 Nasal Cannula 3 03/06/18 14:00 96 16 177/78 (111) 100 Nasal Cannula 3 03/06/18 13:51 98.4 94 17 191/79 (116) 99 Nasal Cannula 3 I/O 03/06/18 03/06/18 03/06/18 03/07/18 03/07/18 03/07/18 07:00 15:00 23:00 07:00 15:00 23:00 Intake Total 240 ml 830 ml 360 ml Output Total 600 ml 180 ml 500 ml Balance -360 ml 650 ml -140 ml Intake Oral 240 ml 360 ml Other 830 ml Output Urine Total 600 ml 130 ml 500 ml Estimated Blood Loss 50 ml # Bowel Movements 0 Result Diagram: 03/07/18 0611 03/07/18 0611 Objective Remarks in bed, nad dressing c/d/i thigh soft neg homans nvi Assessment & Plan Ortho Post Op Day #: 1 Problem List: Assessment and Plan s/p L troch nail nwb LLE daily dressing changes lovenox d/c planning back to snf f/up dr. arthur 2 weeks Cirilo Glasgow Mar 07, 2018 09:22
[2018-03-07] MEDS: MULTIVITAMINS/MINERALS THERAPEUTIC TAB PO SCH (10:00)
[2018-03-07] MEDS: FAMOTIDINE 20 MG TAB PO SCH ×2 (10:00→21:48)
[2018-03-07] MEDS: DOCUSATE SODIUM 50 MG/SENNA 8.6 MG TAB PO SCH ×2 (10:00→21:48)
[2018-03-07] MEDS: TAMSULOSIN HCL 0.4 MG CAP PO SCH (10:00)
[2018-03-07 10:33] VITALS: O2SAT 97
[2018-03-07] MEDS: DEXT 5%-NACL 0.45% 1000 ML INJ 1,000 ML IV SCH ×2 (11:00→21:00)
--- NOTE | 2018-03-07 11:03 | HHI.PR ---
Subjective Remarks Follow-up for left hip fracture s/p ORIF, UTI, dementia. Patient is currently awake, alert, sitting upright in bed, very pleasantly demented. She does not answer questions but instead smiles, nods, holds and kisses my hand. She cannot tell me her name. Vital signs reviewed, BP elevated this morning. O2 sat 97% on room air. No other concerns reported by RN. Objective Vitals Vital Signs Date Time Temp Pulse Resp B/P (MAP) Pulse Ox O2 Delivery O2 Flow Rate FiO2 03/07/18 10:33 97 21 03/07/18 05:05 97.2 89 17 178/80 (112) 95 03/07/18 00:50 97.8 75 17 144/65 (91) 97 03/06/18 20:25 97.9 85 17 155/71 (99) 97 03/06/18 19:39 97 Nasal Cannula 3.00 03/06/18 16:08 78 18 153/67 (95) 97 03/06/18 15:03 97.9 80 18 181/75 (110) 98 03/06/18 14:47 98.0 80 16 157/70 (99) 97 Nasal Cannula 3 03/06/18 14:30 99 16 171/75 (107) 97 Nasal Cannula 3 03/06/18 14:15 99 16 182/77 (112) 97 Nasal Cannula 3 03/06/18 14:00 96 16 177/78 (111) 100 Nasal Cannula 3 03/06/18 13:51 98.4 94 17 191/79 (116) 99 Nasal Cannula 3 I/O 03/06/18 03/06/18 03/06/18 03/07/18 03/07/18 03/07/18 07:00 15:00 23:00 07:00 15:00 23:00 Intake Total 240 ml 830 ml 360 ml Output Total 600 ml 180 ml 500 ml Balance -360 ml 650 ml -140 ml Intake Oral 240 ml 360 ml Other 830 ml Output Urine Total 600 ml 130 ml 500 ml Estimated Blood Loss 50 ml # Bowel Movements 0 Result Diagram: 03/07/18 0611 03/07/18 0611 Imaging Last Impressions Hip X-Ray 03/06/18 0000 Signed Impressions: CONCLUSION: Good placement of the surgical hardware. Successful ORIF. Hip and Pelvis X-Ray 6/17/18 1207 Signed Impressions: CONCLUSION: There is a comminuted mildly displaced fracture of the left femur through the i ntertrochanteric region. Chest X-Ray 03/05/181206 Signed Impressions: CONCLUSION: Mild atelectasis versus consolidation in the left lower lobe. Otherwise, no acu te finding is identified. Objective Remarks GENERAL: Well-nourished, well-developed pleasant, very confused elderly female patient in [facility]. SKIN: Warm and dry. No rash. HEENT: Normocephalic. Atraumatic. Pupils equal and round. Mucous membranes pink and moist. CARDIOVASCULAR: Regular rate and rhythm. No murmur appreciated. RESPIRATORY: No accessory muscle use. Clear to auscultation. Breath sounds equal bilaterally. GASTROINTESTINAL: Abdomen soft, non-tender, nondistended. Normoactive bowel sounds x4. MUSCULOSKELETAL: No obvious deformities. Extremities without clubbing, cyanosis , or edema. Left lateral hip with surgical dressing in place, CDI. NEUROLOGICAL: Awake and alert. No obvious cranial nerve deficits. Motor grossly within normal limits. Moving all extremities spontaneously. PSYCHIATRIC: Pleasant and calm mood; insight and judgment poor. Procedures 03/06/18- intramedullary nail, left intertrochanteric hip fracture by Dr. Medrano Medications and IVs Current Medications Medications (Trade) Dose Ordered Sig/Floyd Route Start Time Stop Time Status Last Admin (Tylenol) 650 mg Q6H PRN PO 03/05/18 13:45 (Norvasc) 10 mg DAILY PO 03/06/18 09:00 03/07/18 10:00 (Lipitor) 10 mg HS PO 03/05/18 21:00 03/06/18 22:32 (Vitamin B12) 500 mcg DAILY PO 03/06/18 09:00 03/07/18 09:00 (Aricept) 10 mg HS PO 03/05/18 21:00 03/06/18 22:32 (Keppra) 250 mg BID PO 03/05/18 21:00 03/07/18 09:00 (Synthroid) 112 mcg DAILY@0600 PO 03/06/18 06:00 03/07/18 04:57 (Flomax) 0.4 mg DAILY PO 03/06/18 09:00 03/07/18 10:00 (Pepcid) 10 mg BID PO 03/06/18 09:00 03/07/18 10:00 (NS Flush) 2 ml UNSCH PRN IV FLUSH 03/05/18 13:45 03/06/18 06:01 (NS Flush) 2 ml BID IV FLUSH 03/05/18 21:00 03/07/18 09:00 (Narcan Inj) 0.4 mg UNSCH PRN IV PUSH 03/05/18 13:45 Ceftriaxone Sodium 1000 mg/ Sodium Chloride 100 ml @ 200 mls/hr Q24H IV 03/06/18 13:00 03/06/18 15:10 (Pill Splitter) 1 ea UNSCH PRN OTHER 03/05/18 14:15 Lactated Ringer's 1,000 ml @ 30 mls/hr Q24H PRN IV 03/05/18 16:15 03/08/18 16:14 Sodium Chloride 500 ml @ 30 mls/hr [id number] PRN IV 03/05/18 16:15 03/08/18 16:14 (Betadine 5% Antisepsis Kit) 1 applic MANUFACTURING TEACHER PRN EACH NARE 03/05/18 16:15 03/08/18 16:14 (Chlorhexidine 2% Cloth) 3 pack MANUFACTURING TEACHER PRN TOPICAL 03/05/18 16:15 03/08/18 16:14 Dextrose/Sodium Chloride 1,000 ml @ 100 mls/hr Q10H IV 03/06/18 15:00 03/06/18 16:13 (Lovenox Inj) 30 mg Q24H SQ 03/07/18 13:00 (Era-Colace) 1 tab BID PO 03/06/18 21:00 03/07/18 10:00 (Milk Of Magnesia Liq) 10 ml Q12H PRN PO 03/06/18 13:45 Cefazolin Sodium 1000 mg/Sodium Chloride 110 ml @ 220 mls/hr Q8H IV 03/06/18 20:00 03/07/18 12:29 03/07/18 04:57 ([facility] Nursing Information) UNSCH PRN XX 03/06/18 13:45 ([place] 7.5-325 Mg) 1 tab Q4H PRN PO 03/06/18 13:45 03/07/18 05:10 ([place] 7.5-325 Mg) 2 tab Q6H PRN PO 03/06/18 13:45 (Morphine Inj) 3 mg Q3H PRN IV PUSH 03/06/18 13:45 (Zofran Odt) 4 mg Q4H PRN PO 03/06/18 13:45 (Theragran M Tab) 1 tab DAILY PO 03/07/18 09:00 03/07/18 10:00 (Benadryl) 25 mg Q6H PRN PO 03/06/18 13:45 ([facility] Nursing Information) ALL NURSING DEPARTME... UNSCH PRN .XX 03/06/18 15:15 03/07/18 15:14 (Vasotec Inj) 2.5 mg Q6H PRN IV PUSH 03/06/18 15:45 03/07/18 05:10 (Keppra) 250 mg Q12HR PO 03/07/18 09:00 03/07/18 09:00 A/P Problem List: (1) Intertrochanteric fracture of left hip ICD Code: S72.142A - Displaced intertrochanteric fracture of left femur, initial encounter for closed fracture Status: Acute (2) UTI (urinary tract infection) ICD Code: N39.0 - Urinary tract infection, site not specified Status: Acute (3) Dementia ICD Code: F03.90 - Unspecified dementia without behavioral disturbance (4) Hyperlipidemia ICD Code: E78.5 - Hyperlipidemia, unspecified (5) Seizure disorder ICD Code: G40.909 - Epilepsy, unspecified, not intractable, without status epilepticus Assessment and Plan 87-year-old female with a medical history significant for dementia, seizure disorder, hyperlipidemia, osteoporosis sent from [facility] and rehab for left hip fracture. The patient has advanced dementia and is unable to provide any history. Left hip fracture: Acute, secondary to fall -Hip/pelvis x-ray reviewed, shows comminuted mildly displaced fracture of the left femur through the intertrochanteric region -Orthopedics consulted -03/06/18 s/p intramedullary nail fixation -PT consulted -Partial weightbearing 50% left lower extremity -Will need to return to rehab at discharge -Ortho cleared, f/up Dr. Medrano in 2 weeks UTI: UA with +nitrites, leuks, WBCs, Bacteria -Given IV Rocephin -Urine culture with E.Coli, resistant to ceftriaxone/cefuroxime -Changed antibiotics to Cipro 250mg po bid x3days Advanced Dementia: patient very pleasantly demented -continue patient's Aricept -appears at baseline Seizure Disorder: chronic -continue patient's Keppra 250mg po bid Hypertension: BP elevated, likely exacerbated by pain -continue patient's Norvasc 10mg daily -control pain Microcytic Anemia: Hgb decreased from 10.2 to 8.3 postoperatively -suspect dilutional in combination from surgery -Repeat H&H this afternoon Leukocytosis: WBC 11K today -suspect reactive secondary to surgery in combination with UTI -encourage incentive spirometry -repeat CBC this afternoon DVT Prophylaxis: Lovenox Discharge Planning Plan to discharge back to SNF tomorrow 03/08 after PT evaluation and if BP improves, and if repeat CBC stable. Discharge patient to SNF Condition on discharge: Stable Heart Healthy, Pureed with Honey Thickened liquids as tolerated Ad Frances activity, partial weightbearing 50% LLE Rx written: [place] prn, Aspirin 81mg bid, Cipro 250mg bid x3days Follow-up with primary care physician Dr. Oneill and orthopedics Dr. Medrano Problem Qualifiers (1) Intertrochanteric fracture of left hip: Qualified Codes: S72.142A - Displaced intertrochanteric fracture of left femur , initial encounter for closed fracture (2) UTI (urinary tract infection): Qualified Codes: N30.00 - Acute cystitis without hematuria Jenniffer Das PA-C Mar 07, 2018 11:03
[2018-03-07] MEDS ORDERED: CIPR250T52 PO (11:32)
--- NOTE | 2018-03-07 11:32 | HHI.DCPOC ---
Discharge Care Plan Diagnosis: (1) Intertrochanteric fracture of left hip (2) UTI (urinary tract infection) (3) Dementia Goals to Promote Your Health * To prevent worsening of your condition and complications * To maintain your health at the optimal level Directions to Meet Your Goals Take your medications as prescribed Follow your dietary instruction Follow activity as directed Keep your appointments as scheduled Take your immunizations and boosters as scheduled If your symptoms worsen call your PCP, if no PCP go to Urgent Care Center or Emergency Room Smoking is Dangerous to Your Health. Avoid second hand smoke Call the 24-hour hour crisis hotline for domestic abuse at Jenniffer Das PA-C Mar 07, 2018 11:32
[2018-03-07] MEDS: ENOXAPARIN SODIUM 30 MG/0.3 ML SYRINGE SQ SCH (13:32)
[2018-03-07 14:07] LABS: HEMATOCRIT 27.1 % (35.0-46.0); HEMOGLOBIN 8.7 GM/DL (11.6-15.3); MEAN CELL VOLUME 77.6 FL (80.0-100.0); MEAN CORPUSCULAR HEMOGLOBIN 24.8 PG (27.0-34.0); MEAN PLATELET VOLUME 9.4 FL (7.0-11.0); PLATELET COUNT 173 TH/MM3 (150-450); RED BLOOD COUNT 3.49 MIL/MM3 (4.00-5.30); RED CELL DISTRIBUTION WIDTH 13.8 % (11.6-17.2); WHITE BLOOD COUNT 11.8 TH/MM3 (4.0-11.0)
[2018-03-07] MEDS: CIPROFLOXACIN 250 MG TAB PO SCH ×2 (15:41→21:48)
[2018-03-07] MEDS ORDERED: CEFAZOLIN INJ 1,000 MG in SODIUM CHLORIDE 0.9% INJ 100 ML IV SCH (16:00)
[2018-03-07 19:37] VITALS: O2SAT 97
[2018-03-07 19:50] VITALS: BP 139/65; PULSE 92; RESP 18; TEMP 98.3; O2SAT 95
[2018-03-07] MEDS: ATORVASTATIN 10 MG TAB PO SCH (21:47)
[2018-03-07] MEDS: DONEPEZIL HCL 5 MG TAB PO SCH (21:47)
[2018-03-08] VITALS (11 sets, daily range): BP systolic 109–167; BP diastolic 60–72; PULSE 18–99; RESP 15–20; TEMP 96.9–98.9; O2SAT 91–99
[2018-03-08] MEDS: ACETAMINOPHEN/HYDROcodone 325 MG/7.5 MG TAB PO PRN (00:20)
[2018-03-08] MEDS: LEVOTHYROXINE SODIUM 112 MCG TAB PO SCH (06:05)
[2018-03-08] MEDS: DEXT 5%-NACL 0.45% 1000 ML INJ 1,000 ML IV SCH ×2 (07:00→16:17)
[2018-03-08 07:57] LABS: AUTOMATED NEUTROPHIL # 6.3 TH/MM3 (1.8-7.7); BASOPHIL % 0.6 % (0.0-2.0); EOSINOPHIL # 0.2 TH/MM3 (0-0.4); HEMATOCRIT 22.6 % (35.0-46.0); HEMOGLOBIN 7.4 GM/DL (11.6-15.3); LYMPH % 12.9 % (9.0-44.0); LYMPHOCYTE # 1.1 TH/MM3 (1.0-4.8); MEAN CELL VOLUME 76.8 FL (80.0-100.0); MEAN CORPUSCULAR HEMOGLOBIN 25.1 PG (27.0-34.0); MEAN CORPUSCULAR HGB CONC 32.7 % (32.0-36.0); MEAN PLATELET VOLUME 9.2 FL (7.0-11.0); MONO % 7.9 % (0.0-8.0); MONOCYTE # 0.6 TH/MM3 (0-0.9); NEUT % 76.6 % (16.0-70.0); PLATELET COUNT 176 TH/MM3 (150-450); RED BLOOD COUNT 2.94 MIL/MM3 (4.00-5.30); RED CELL DISTRIBUTION WIDTH 14.2 % (11.6-17.2); WHITE BLOOD COUNT 8.2 TH/MM3 (4.0-11.0)
[2018-03-08 08:25] LABS: BICARBONATE 25.1 MEQ/L (21.0-32.0); CALCIUM 8.1 MG/DL (8.5-10.1); CREATININE 0.61 MG/DL (0.50-1.00)
--- NOTE | 2018-03-08 08:38 | HHI.PR ---
Subjective Remarks patient doing OK, confused at baseline dementia. She has no complaints at this time. Objective Vitals Vital Signs Date Time Temp Pulse Resp B/P (MAP) Pulse Ox O2 Delivery O2 Flow Rate FiO2 03/08/18 00:26 96.9 94 15 128/66 (86) 95 03/07/18 19:50 98.3 92 18 139/65 (89) 95 03/07/18 19:37 97 03/07/18 10:33 97 21 I/O 03/07/18 03/07/18 03/07/18 03/08/18 03/08/18 03/08/18 07:00 15:00 23:00 07:00 15:00 23:00 Intake Total 360 ml 500 ml 150 ml Output Total 500 ml 400 ml 950 ml Balance -140 ml 100 ml -800 ml Intake Oral 360 ml 500 ml 150 ml Output Urine Total 500 ml 400 ml 950 ml # Bowel Movements 0 Result Diagram: 03/08/18 0703/08/18712 Objective Remarks GENERAL: This is a well-nourished, well-developed patient, in no apparent distress. CARDIOVASCULAR: Regular rate and rhythm without murmurs, gallops, or rubs. RESPIRATORY: Clear to auscultation. Breath sounds equal bilaterally. No wheezes , rales, or rhonchi. MUSCULOSKELETAL: Extremities without clubbing, cyanosis, or edema. NEURO: Alert & Oriented to person only moves all ext x4 Procedures 03/06/18- intramedullary nail, left intertrochanteric hip fracture by Dr. Medrano A/P Problem List: (1) Intertrochanteric fracture of left hip ICD Code: S72.142A - Displaced intertrochanteric fracture of left femur, initial encounter for closed fracture Status: Acute (2) Dementia ICD Code: F03.90 - Unspecified dementia without behavioral disturbance Status: Chronic (3) Hyperlipidemia ICD Code: E78.5 - Hyperlipidemia, unspecified Status: Chronic (4) Seizure disorder ICD Code: G40.909 - Epilepsy, unspecified, not intractable, without status epilepticus Status: Chronic (5) E-coli UTI ICD Code: N39.0 - Urinary tract infection, site not specified; B96.20 - Unspecified Escherichia coli [E. coli] as the cause of diseases classified elsewhere Status: Resolved Assessment and Plan 87-year-old female with a medical history significant for dementia, seizure disorder, hyperlipidemia, osteoporosis sent from [facility] and rehab for left hip fracture. The patient has advanced dementia and is unable to provide any history. Left hip fracture status post operative day #2 intramedullary nail fixation with Dr. Medrano, continue postoperative care, pain control, physical therapy: -Partial weightbearing 50% left lower extremity -Will need to return to rehab at discharge -Ortho cleared, f/up Dr. Medrano in 2 weeks E. coli UTI: UA with +nitrites, leuks, WBCs, Bacteria -Initially given IV Rocephin however urine culture with E.Coli, resistant to ceftriaxone/cefuroxime -Changed antibiotics to Cipro 250mg po bid x 3days Advanced Dementia, chronic: patient very pleasantly demented -continue patient's Aricept -appears at baseline Seizure Disorder: chronic -continue patient's Keppra 250mg po bid Hypertension, chronic essential overall controlled -continue patient's Norvasc 10mg daily acute postoperative anemia due to blood loss from surgery: Hgb decreased from 10.2 to 7.4 postoperatively -suspect dilutional in combination from surgery Transfuse 2 units of packed red blood cell today. Leukocytosis: Resolved DVT Prophylaxis: Lovenox Discharge Planning Discharge to longterm facility in the morning if hemoglobin remained stable Problem Qualifiers (1) Intertrochanteric fracture of left hip: Qualified Codes: S72.142A - Displaced intertrochanteric fracture of left femur , initial encounter for closed fracture (2) Dementia: (3) Hyperlipidemia: Qualified Codes: E78.5 - Hyperlipidemia, unspecified Loli Phillips MD Mar 08, 2018 08:38
[2018-03-08] MEDS ORDERED: SODIUM CHLOR 0.9% 250 ML INJ 250 ML IV ONE (08:45)
[2018-03-08] MEDS: MULTIVITAMINS/MINERALS THERAPEUTIC TAB PO SCH (09:34)
[2018-03-08] MEDS: DOCUSATE SODIUM 50 MG/SENNA 8.6 MG TAB PO SCH ×2 (09:34→22:54)
[2018-03-08] MEDS: CIPROFLOXACIN 250 MG TAB PO SCH ×2 (09:34→22:56)
[2018-03-08] MEDS: TAMSULOSIN HCL 0.4 MG CAP PO SCH (09:35)
[2018-03-08] MEDS: levETIRAcetam 250 MG TAB PO SCH ×2 (09:35→22:54)
[2018-03-08] MEDS: FAMOTIDINE 20 MG TAB PO SCH ×2 (09:35→22:55)
[2018-03-08] MEDS: SODIUM CHLORIDE 0.9% FLUSH 10 ML FLUSH IV FLUSH SCH ×2 (09:36→21:00)
[2018-03-08] MEDS: CYANOCOBALAMIN 1,000 MCG TAB PO SCH (09:36)
--- NOTE | 2018-03-08 11:33 | PD.ORT.PN ---
Subjective Post Op Day #: 2 Subjective Remarks hx of dementia Objective Vitals Vital Signs Date Time Temp Pulse Resp B/P (MAP) Pulse Ox O2 Delivery O2 Flow Rate FiO2 03/08/18 08:00 97.8 89 19 119/60 (79) 92 03/08/18 00:26 96.9 94 15 128/66 (86) 95 03/07/18 19:50 98.3 92 18 139/65 (89) 95 03/07/18 19:37 97 I/O 03/07/18 03/07/18 03/07/18 03/08/18 03/08/18 03/08/18 07:00 15:00 23:00 07:00 15:00 23:00 Intake Total 360 ml 500 ml 150 ml Output Total 500 ml 400 ml 950 ml Balance -140 ml 100 ml -800 ml Intake Oral 360 ml 500 ml 150 ml Output Urine Total 500 ml 400 ml 950 ml # Bowel Movements 0 Result Diagram: 03/08/18 0713 03/08/18 0713 Objective Remarks in chair, nad dressing bloody drainage, patient has been picking at dressing thigh soft neg homans nvi Assessment & Plan Ortho Post Op Day #: 2 Problem List: Assessment and Plan s/p L troch nail nwb LLE daily dressing changes - reinforce dressing as needed anemia - prbc ordered by med lovenox d/c planning back to snf f/up dr. arthur 2 weeks Cirilo Glasgow Mar 08, 2018 11:33
[2018-03-08] MEDS: ENOXAPARIN SODIUM 30 MG/0.3 ML SYRINGE SQ SCH (13:20)
[2018-03-08] MEDS: DONEPEZIL HCL 5 MG TAB PO SCH (22:55)
[2018-03-08] MEDS: ATORVASTATIN 10 MG TAB PO SCH (22:55)
[2018-03-09] VITALS (7 sets, daily range): BP systolic 109–194; BP diastolic 62–80; PULSE 82–92; RESP 17–18; TEMP 97.4–98.8; O2SAT 91–96
[2018-03-09] MEDS: DEXT 5%-NACL 0.45% 1000 ML INJ 1,000 ML IV SCH (03:00)
[2018-03-09] MEDS: LEVOTHYROXINE SODIUM 112 MCG TAB PO SCH (06:44)
--- NOTE | 2018-03-09 08:07 | PD.ORT.PN ---
Subjective Post Op Day #: 3 Subjective Remarks hx of dementia Objective Vitals Vital Signs Date Time Temp Pulse Resp B/P (MAP) Pulse Ox O2 Delivery O2 Flow Rate FiO2 03/09/18 06:55 97.9 82 18 147/77 (100) 92 03/09/18 00:54 97.4 86 17 159/67 92 03/09/18 00:31 98.8 92 18 109/64 (79) 91 03/08/18 21:49 93 03/08/18 20:55 98.8 18 18 109/64 91 03/08/18 20:40 98.2 98 20 153/68 93 03/08/18 19:15 98.2 93 18 153/68 (96) 93 03/08/18 16:30 98.9 92 16 160/69 03/08/18 16:14 98.5 99 17 167/71 99 03/08/18 16:00 98.5 99 17 167/71 (103) 92 03/08/18 12:00 97.4 86 18 161/72 (101) 93 03/08/18 11:33 92 I/O 03/08/18 03/08/18 03/08/18 03/09/18 03/09/18 03/09/18 07:00 15:00 23:00 07:00 15:00 23:00 Intake Total 150 ml 780 ml 760 ml Output Total 950 ml 400 ml Balance -800 ml 380 ml 760 ml Intake Oral 150 ml 360 ml 360 ml Packed Cells 400 ml 400 ml Blood Product IV Normal Saline Flush 20 ml Output Urine Total 950 ml 400 ml # Voids 3 # Bowel Movements 1 Result Diagram: 03/08/18 0713 03/08/18 0713 Objective Remarks in bed, nad dressing c/d/i thigh soft neg homans nvi Assessment & Plan Ortho Post Op Day #: 3 Problem List: Assessment and Plan s/p L troch nail 50%PWB LLE daily dressing changes - reinforce dressing as needed anemia - 2 units transfused yesterday lovenox d/c planning back to snf - ortho cleared f/up dr. arthur 2 weeks Cirilo Glasgow Mar 09, 2018 08:06
[2018-03-09] MEDS: CYANOCOBALAMIN 1,000 MCG TAB PO SCH (09:00)
[2018-03-09] MEDS: FAMOTIDINE 20 MG TAB PO SCH (09:00)
[2018-03-09] MEDS: SODIUM CHLORIDE 0.9% FLUSH 10 ML FLUSH IV FLUSH SCH (09:00)
[2018-03-09] MEDS: DOCUSATE SODIUM 50 MG/SENNA 8.6 MG TAB PO SCH (09:00)
[2018-03-09] MEDS: MULTIVITAMINS/MINERALS THERAPEUTIC TAB PO SCH (09:00)
[2018-03-09] MEDS: TAMSULOSIN HCL 0.4 MG CAP PO SCH (09:00)
[2018-03-09] MEDS: CIPROFLOXACIN 250 MG TAB PO SCH (09:30)
[2018-03-09] MEDS: levETIRAcetam 250 MG TAB PO SCH (09:30)
--- NOTE | 2018-03-09 09:57 | HHI.DS ---
Discharge Summary Admission Date Mar 05, 2018 at 13:56 Discharge Date: Mar 09, 2018 Admitting Diagnosis (1) Intertrochanteric fracture of left hip ICD Code: S72.142A - Displaced intertrochanteric fracture of left femur, initial encounter for closed fracture Diagnosis: Principal Status: Acute (2) Dementia ICD Code: F03.90 - Unspecified dementia without behavioral disturbance Diagnosis: Secondary Status: Chronic (3) Hyperlipidemia ICD Code: E78.5 - Hyperlipidemia, unspecified Diagnosis: Secondary Status: Chronic (4) Seizure disorder ICD Code: G40.909 - Epilepsy, unspecified, not intractable, without status epilepticus Status: Chronic (5) E-coli UTI ICD Code: N39.0 - Urinary tract infection, site not specified; B96.20 - Unspecified Escherichia coli [E. coli] as the cause of diseases classified elsewhere Diagnosis: Secondary Status: Resolved Procedures 03/06/18- intramedullary nail, left intertrochanteric hip fracture by Dr. Medrano Brief History - From Admission 87-year-old female with a medical history significant for dementia, seizure disorder, hyperlipidemia, osteoporosis sent from [facility] and rehab for left hip fracture. The patient has dementia and is unable to provide any history. History obtained from communications with ER physician and review of the chart. Apparently the patient was brought in with paperwork showing an outpatient x-ray with report of left intratrochanteric fracture. It is unclear how the patient sustained injury. There has been no report of change in mental status or syncopal episodes. Workup in the emergency room confirmed a left hip fracture and urinalysis concerning for UTI. Orthopedic surgery has been consulted. CBC/BMP: 03/08/18 0713 03/08/18 0713 Significant Findings Laboratory Tests Test 03/07/18 06:11 03/07/18 13:35 03/08/18 07:13 White Blood Count 11.3 TH/MM3 (4.0-11.0) 11.8 TH/MM3 (4.0-11.0) Red Blood Count 3.33 MIL/MM3 (4.00-5.30) 3.49 MIL/MM3 (4.00-5.30) 2.94 MIL/MM3 (4.00-5.30) Hemoglobin 8.3 GM/DL (11.6-15.3) 8.7 GM/DL (11.6-15.3) 7.4 GM/DL (11.6-15.3) Hematocrit 25.6 % (35.0-46.0) 27.1 % (35.0-46.0) 22.6 % (35.0-46.0) Mean Corpuscular Volume 76.9 FL (80.0-100.0) 77.6 FL (80.0-100.0) 76.8 FL (80.0-100.0) Mean Corpuscular Hemoglobin 24.9 PG (27.0-34.0) 24.8 PG (27.0-34.0) 25.1 PG (27.0-34.0) Platelet Count 143 TH/MM3 (150-450) Random Glucose 133 MG/DL (74-106) Calcium Level 8.1 MG/DL (8.5-10.1) 8.1 MG/DL (8.5-10.1) Estimat Glomerular Filtration Rate 79 ML/MIN (>89) Neutrophils (%) (Auto) 76.6 % (16.0-70.0) Chloride Level 108 MEQ/L (98-107) Imaging Last Impressions Hip X-Ray 03/06/18 0000 Signed Impressions: CONCLUSION: Good placement of the surgical hardware. Successful ORIF. Hip and Pelvis X-Ray 03/05/18 1207 Signed Impressions: CONCLUSION: There is a comminuted mildly displaced fracture of the left femur through the i ntertrochanteric region. Chest X-Ray 03/05/18 1207 Signed Impressions: CONCLUSION: Mild atelectasis versus consolidation in the left lower lobe. Otherwise, no acu te finding is identified. PE at Discharge GENERAL: This is a well-nourished, well-developed patient, in no apparent distress. CARDIOVASCULAR: Regular rate and rhythm without murmurs, gallops, or rubs. RESPIRATORY: Clear to auscultation. Breath sounds equal bilaterally. No wheezes , rales, or rhonchi. MUSCULOSKELETAL: Extremities without clubbing, cyanosis, or edema. NEURO: Alert & Oriented to person only moves all ext x4 Hospital Course These are the medical issues addressed during this hospitalization: 87-year-old female with a medical history significant for dementia, seizure disorder, hyperlipidemia, osteoporosis sent from [facility] and rehab for left hip fracture. The patient has advanced dementia and is unable to provide any history. Left hip fracture status post intramedullary nail fixation with Dr. Medrano on 618, continue postoperative care, pain control, physical therapy: -Partial weightbearing 50% left lower extremity E. coli UTI: -Initially given IV Rocephin however urine culture with E.Coli, resistant to ceftriaxone/cefuroxime -Changed antibiotics to Cipro 250mg po bid x 3days Advanced Dementia, chronic: patient very pleasantly demented -continue patient's Aricept -appears at baseline Seizure Disorder: chronic -continue patient's Keppra 250mg po bid Hypertension, chronic essential overall controlled -continue patient's Norvasc 10mg daily acute postoperative anemia due to blood loss from surgery: Hgb decreased from 10.2 to 7.4 postoperatively -suspect dilutional in combination from surgery Transfused 2 units of packed red blood cell during hospitalization Leukocytosis: Resolved DVT Prophylaxis: Lovenox At this time, patient has gained maximum benefit from hospitalization and ready to be discharged to half-way facility Pt Condition on Discharge: Stable Discharge Disposition: Discharge to SNF Discharge Time: <= 30 minutes Discharge Instructions DIET: Follow Instructions for: Heart Healthy Diet, Low Sodium Diet Speech Therapy-Diet Recommends: Honey Thickened Liquids, Pureed Activities you can perform: Partial Weight Bearing Other Activity Instructions: Dr. Medrano recommends 50% partial weight bearing of LLE Follow up Referrals: Orthopedics - 2 Weeks with Cirilo Medrano MD PCP Follow-up - 1 Week with Simone Oneill MD New Medications: Aspirin (Aspirin Low Dose) 81 Mg Chew 81 MG CHEW BID for Prevent Blood Clot for 30 Days, #60 TAB 0 Refills Hydrocodone-Acetaminophen (B[place]any) 5 Mg-325 Mg Tab 1 TAB PO Q6H PRN for PAIN, #60 TAB 0 Refills Ciprofloxacin (Cipro) 250 Mg Tab 250 MG PO Q12HR for UTI for 3 Days, #6 TAB Continued Medications: Acetaminophen (Tylenol) 325 Mg Tab 650 MG PO Q6H PRN for PAIN SCALE 1 TO 4, TAB 0 Refills Alendronate (Fosamax) 70 Mg Tab 70 MG PO Q7D for Osteoporosis Treatment, #4 TAB 0 Refills Amlodipine (Amlodipine) 10 Mg Tab 10 MG PO DAILY for Blood Pressure Management, #30 TAB 0 Refills Atorvastatin (Atorvastatin) 10 Mg Tab 10 MG PO HS for Cholesterol Management, #30 TAB 0 Refills Cyanocobalamin (Vitamin B-12) 500 Mcg Tab 500 MCG PO DAILY for Nutritional Supplement, #1 BOTTLE 0 Refills Donepezil (Donepezil) 10 Mg Tab 10 MG PO HS for Dementia, #30 TAB 0 Refills Ezetimibe (Zetia) 10 Mg Tab 10 MG PO DAILY, #30 TAB 0 Refills Levetiracetam (Keppra) 250 Mg Tab 250 MG PO BID for Control Seizures, #60 TAB 0 Refills Levothyroxine (Levothyroxine) 112 Mcg Tab 112 MCG PO DAILY for Thyroid, #30 TAB 0 Refills Ranitidine (Ranitidine) 150 Mg Tab 150 MG PO DAILY for Heartburn Management, #30 TAB 0 Refills Tamsulosin (Flomax) 0.4 Mg Cap 0.4 MG PO DAILY for Manage Prostate Problems, #30 CAP 0 Refills Discontinued Medications: Aspirin (Aspirin) 81 Mg Chew 81 MG CHEW DAILY, TAB 0 Refills Loli Phillips MD Mar 09, 2018 09:57
[2018-03-09 12:02] LABS: HEMATOCRIT 37.4 % (35.0-46.0); HEMOGLOBIN 12.6 GM/DL (11.6-15.3); MEAN CELL VOLUME 81.3 FL (80.0-100.0); MEAN CORPUSCULAR HEMOGLOBIN 27.3 PG (27.0-34.0); MEAN CORPUSCULAR HGB CONC 33.6 % (32.0-36.0); MEAN PLATELET VOLUME 8.9 FL (7.0-11.0); PLATELET COUNT 199 TH/MM3 (150-450); RED CELL DISTRIBUTION WIDTH 16.4 % (11.6-17.2); WHITE BLOOD COUNT 7.8 TH/MM3 (4.0-11.0)
== END 2018-03-09 13:35 | DRG 481 ==
LOC: NEPC 11:55 → NEDA 13:56 → N06B 14:57
PROVIDERS: ADMIT Family Medicine; ATTEND Family Medicine
PROC: 0QS706Z Reposition Left Upper Femur with Intramedullary Internal Fixation Device, Open Approach (ICD-10-PCS; principal; 2018-03-06 12:25)
PROC: 30233N1 Transfusion of Nonautologous Red Blood Cells into Peripheral Vein, Percutaneous Approach (ICD-10-PCS; 2018-03-08)
DX: S72.142A Displaced intertrochanteric fracture of left femur, initial encounter for closed fracture (principal); N39.0 Urinary tract infection, site not specified; F03.90 Unspecified dementia, unspecified severity, without behavioral disturbance, psychotic disturbance, mood disturbance, and anxiety; D62 Acute posthemorrhagic anemia; I45.10 Unspecified right bundle-branch block; E55.9 Vitamin D deficiency, unspecified; E03.9 Hypothyroidism, unspecified; E78.5 Hyperlipidemia, unspecified; I25.10 Atherosclerotic heart disease of native coronary artery without angina pectoris; K21.9 Gastro-esophageal reflux disease without esophagitis; M81.0 Age-related osteoporosis without current pathological fracture; G40.909 Epilepsy, unspecified, not intractable, without status epilepticus; I10 Essential (primary) hypertension; B96.20 Unspecified Escherichia coli [E. coli] as the cause of diseases classified elsewhere; F41.9 Anxiety disorder, unspecified; W19.XXXA Unspecified fall, initial encounter; Z16.19 Resistance to other specified beta lactam antibiotics
CPT/HCPCS: 36430; 51702; 71045; 73502; 76000; 80048; 80053; 81001; 85025; 85027; 85610; 85730; 86850; 86900; 86901; 86920; 87077; 87086; 87186; 93005; 96365; 96375; C1713; J0131; J0690; J0696; J1100; J1580; J1650; J1953; J1956; J2270; J2370; J2405; J3010; J3370; J7050; P9016